=== PATIENT | female | born 1975 | race Caucasian/White ===

== ENCOUNTER → 2021-07-28 14:38 | Outpatient (BNVA) | payer OTHER, SELFPAY | PROVIDERS: Visit Provider Nurse Practitioner | DX: M25.569 Pain in unspecified knee (principal) | CPT/HCPCS: 73562 ==

== ENCOUNTER 2022-01-16 07:21 | Outpatient (CLI) | payer OTHER, SELFPAY ==
--- NOTE | 2022-01-16 08:00 | MR_ITS ---
WS: [id number] MRI LEFT KNEE NONCONTRAST TECHNIQUE: Axial PD, coronal PD fat sat, coronal PD, sagittal PD, and sagittal PD fat-sat images obta ined. CLINICAL INFORMATION: S89.90XA - Unspecified injury of unspecified lower leg, i... COMPARISON: None. FINDINGS: Distal quadriceps and patella tendons are intact. Hypertrophic patella with upper pole osteophyte. Ad vanced chondromalacia patella with subchondral edema in the lateral patella facet. Small suprapatella r effusion. Tendinopathy patella tendon insertion. Prepatellar soft tissue edema. ACL and PCL are intact. Somewhat diminutive and chronic thinning of the ACL. Advanced tricompartmenta l arthritis. Grade 3 chondromalacia involving the medial and lateral joint compartments. No subchondr al edema. Chronic thinning of the medial and lateral meniscus. No acute appearing meniscal tears. Normal medial and lateral patellar retinaculum. Normal popliteal fossa. Small cluster tiny ganglion cysts along th e posterior medial femoral condyle. Medial and lateral collateral ligaments are intact. Small amount of fluid and edema deep to the MCL consistent with grade one injury. MR/MR knee LT wo con* [id number] IMPRESSION: 1. Advanced tricompartmental arthritis. 2. ACL and PCL are intact. Chronic thinning with somewhat diminutive ACL. 3. No acute appearing meniscal tears. Chronic thinning of the medial and later al meniscus. 4. Grade III chondromalacia medial and lateral joint compartments. No subchond ral edema. Chondromalacia advanced for patient this age. 5. Grade IV chondromalacia patella with subchondral edema along the lateral pa tella facet. Hypertrophic patella with upper pole projecting osteophyte measuri ng 11 mm. Chondromalacia advanced patient this age. 6. Small amount of fluid and edema deep to the MCL can be seen with grade one injury. LCL is intact. 7. Hypertrophic changes along the joint line. Outbridge grading: grade IV: full-thickness cartilage loss with underlying bone reactive changes
== END 2022-01-16 07:22 | disposition home or self-care (01) ==
PROVIDERS: PCP Internal Medicine; Visit Provider Orthopaedic Surgery
DX: S89.92XA Unspecified injury of left lower leg, initial encounter (principal); X58.XXXA Exposure to other specified factors, initial encounter; M22.42 Chondromalacia patellae, left knee
CPT/HCPCS: 73721

== ENCOUNTER 2023-01-13 08:44 | Emergency (ER) | payer SELFPAY ==
[2023-01-13] VITALS (7 sets, daily range): BP systolic 131–158; BP diastolic 79–96; PULSE 70–82; RESP 12–24; TEMP 36.7; O2SAT 99–100; BMI 47.2
--- NOTE | 2023-01-13 08:47 | ECG_ITS ---
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 Measurements Intervals [place] Rate: 77 P: 51 IL: 187 QRS: 113 QRSD: 102 T: 49 QT: 364 QTc: 413 Interpretive Statements SINUS RHYTHM POSSIBLE RIGHT VENTRICULAR HYPERTROPHY [SOME/ALL OF: PROMINENT R IN V1, LATE TRANSITION, RAD, SAPPHIRE, SSS] POSSIBLE ANTERIOR MYOCARDIAL INFARCTION , PROBABLY OLD [30 ms Q WAVE IN V3/V4, OR R < 0.2 mV IN V4] No previous ECG available for comparison Electronically Signed On 01-13-2023 11:53:19 CDT by Mateusz Tijerina M.D. [id number]
--- NOTE | 2023-01-13 08:48 | W.ED.GENADLT ---
HPI - General Adult General: Chief complaint: Chest Pain Stated complaint: High BP, High HR, back pain Time Seen by Provider: 01/13/23 08:46 Source: patient Mode of arrival: ambulatory History of Present Illness: 47-year-old female presents emergency room complaining of lightheaded dizziness vertiginous-like syndrome. This began last night at around 10:00. She states she had a migraine for about the last week or more. She is also have elevated blood pressure. She was started on lisinopril approximately 1 week ago. She intermittently has some mild chest discomfort although on exam it is noted that it was slightly reproducible with palpation across left sternal border. She tells me she previously had to what she describes as stress heart attacks had an angiogram done and then the angiogram was read as normal. No recent trauma or falls no neck pain. She is not on any anticoagulants. She is on for Enterra mean. She has a history of diabetes mellitus was previously on metformin but lost a substantial amount of weight and her hemoglobin A1c dropped below 6 and they stopped the metformin. She is able to reproduce her symptoms by movement of her head or sitting up but noted during exam looking at her ears having her turn her head and have her and sitting up so we could listen to her lungs she reproduced her vertiginous-like symptoms. Onset (ago): hour(s) Location: head Severity: moderate Relieving factors: none Exacerbating factors: none Associated symptoms: Reports headache(s); Deny chest pain, confusion, cough, diaphoresis, decreased appetite, dyspnea, fevers/chills, malaise, nausea, rash, palpitations, seizures, short of breath, syncope, vomiting or weakness Review of Systems Const: Denies: fever(s), chills, fatigue, malaise or diaphoresis ENMT: Denies: throat pain, ear or mastoid pain, nasal discharge or nasal congestion Card: Denies: chest pain, palpitations or syncope Resp: Denies: dyspnea GI: Denies: abdominal pain, nausea or vomiting : Denies: flank pain, difficulty voiding, dysuria, urinary frequency or urinary urgency Musc: Denies: neck pain or back pain Skin/Breast: Denies: rash Neuro: Reports: headache(s) and vertigo; Denies: lack of coordination, difficulty walking or confusion [facility] ED PFSH: Medical History (Updated 01/13/23 @ 12:27 by Macho White DO) Diabetes Obesity Social History Smoking and tobacco status: never smoked Physical Exam Const: GENERAL APPEARANCE: cooperative and comfortable ORIENTATION/CONSCIOUSNESS: Yes awake, Yes oriented to person, Yes oriented to place and Yes oriented to time HENMT: COMMON NORMALS: normocephalic, atraumatic and hearing grossly normal bilaterally HEAD & SCALP: normocephalic and atraumatic Resp: COMMON NORMALS: normal respiratory effort, No retractions, No use of accessory muscles and clear to auscultation bilaterally AUSCULTATION: clear to auscultation bilaterally Cardio: COMMON NORMALS: regular rate, regular rhythm and No murmurs present (Cardio) RATE: regular rate RHYTHM: regular rhythm GI: COMMON NORMALS: Soft to palpation and No hepatosplenomegaly present AUSCULTATION: Yes normoactive bowel sounds PALPATION: Yes Soft to palpation, No Tenderness to palpation present (GI), No Guarding due to palpation present (GI) and Yes No hepatosplenomegaly present Extremity: COMMON NORMALS: normal to inspection, capillary refill normal, no clubbing, cyanosis or edema, no calf tenderness and no pedal edema Neuro: SENSORIUM/ORIENTATION: Yes oriented to person, Yes oriented to place and Yes oriented to time Skin: COMMON NORMALS: no rashes or lesions noted GENERAL SKIN EXAM: no rashes or lesions noted Course Vital Signs: Vital signs: Vital Signs Temperature 98.1 F 01/13/23 08:48 Pulse Rate 77 01/13/23 11:00 Respiratory Rate 24 H 01/13/23 11:00 Blood Pressure 131/79 01/13/23 11:00 Pulse Oximetry 100 01/13/23 09:30 Oxygen Delivery Me thod Room Air 01/13/23 08:48 MDM - General Adult Medical Decision Making Patient improved slightly after fluids and medications. Will discharge home she has no focal neurologic deficits NIH score is 0 at the bedside. She can reproduce her symptoms of her vertigo with movement of her head particularly turning her head to the right and sitting up. We will start on Ativan 1 every 6 hours as needed follow-up with her primary care doctor if not improving. Medical Records I reviewed the patient's medical records. Lab Data I reviewed the patient's lab results. 01/13/23 09:15 01/13/23 09:15 Radiology Impressions Chest X-Ray 01/13/23 10:25 IMPRESSION: No acute findings. Laboratory Results WBC 6.2 10^3/uL (4.0-10.0) 01/13/23 09:15 RBC 5.33 10^6/uL (4.1-5.3) H 01/13/23 09:15 Hgb 13.7 g/dL (11.5-15.3) 01/13/23 09:15 Hct 43.1 % (37.0-47.0) 01/13/23 09:15 MCV 80.9 fl (81-99) L 01/13/23 09:15 MCH 25.7 pg (28.0-34.0) L 01/13/23 09:15 MCHC 31.8 g/dL (30.0-36.0) 01/13/23 09:15 RDW 14.1 % (12.1-15.1) 01/13/23 09:15 Plt Count 237 10^3/cmm (130-400) 01/13/23 09:15 MPV 10.1 fL (7.4-10.4) 01/13/23 09:15 Neut % (Auto) 58.3 % 01/13/23 09:15 Lymph % (Auto) 28.6 % 01/13/23 09:15 [place] % (Auto) 8.1 % 01/13/23 09:15 Eos % (Auto) 3.6 % 01/13/23 09:15 Baso % (Auto) 1.1 % 01/13/23 09:15 Neut # (Auto) 3.58 10^3/uL (1.8-7.7) 01/13/23 09:15 Lymph # (Auto) 1.8 10^3/uL (0.8-4.8) 01/13/23 09:15 [place] # (Auto) 0.5 10^3/uL (0.2-0.9) 01/13/23 09:15 Eos # (Auto) 0.2 10^3/uL (0.0-0.8) 01/13/23 09:15 Baso # (Auto) 0.1 10^3/uL (0.0-0.1) 01/13/23 09:15 Nucleated RBC % (auto) 0 % 01/13/23 09:15 Nucleated RBCs # 0.0 /100WBC 01/13/23 09:15 Sodium 141 mmol/L (136-145) 01/13/23 09:15 Potassium 4.1 mmol/L (3.5-5.1) 01/13/23 09:15 Chloride 107 mmol/L (98-107) 01/13/23 09:15 Carbon Dioxide 25 mmol/L (22-29) 01/13/23 09:15 Anion Gap 13.1 (5-19) 01/13/23 09:15 BUN 18 mg/dL (6-20) 01/13/23 09:15 Creatinine 0.6 mg/dL (0.5-0.9) 01/13/23 09:15 GFR Calculation 106.7 mL/min (90-130) 01/13/23 09:15 Glucose 97 mg/dL (65-115) 01/13/23 09:15 Calculated Osmolality 294 mOsm/kg (285-295) 01/13/23 09:15 Calcium 8.9 mg/dL (8.5-10.5) 01/13/23 09:15 Troponin T Baseline 6 ng/L (0-10) 01/13/23 09:15 Troponin T 120 Minute 6.00 ng/L (0-10) 01/13/23 11:27 Delta Troponin T 0 ABS# (0-10) 01/13/23 11:27 Urine Color Yellow (Yellow) 01/13/23 09:50 Urine Appearance Hazy (CLEAR) A 01/13/23 09:50 Urine pH 7 (5-7) 01/13/23 09:50 Ur Specific [place] 1.015 (1.005-1.030) 01/13/23 09:50 Urine Protein Neg (Negative) 01/13/23 09:50 Urine Glucose (UA) Norm (Normal) 01/13/23 09:50 Urine Ketones Negative (Negative) 01/13/23 09:50 Urine Blood Neg (Negative) 01/13/23 09:50 Urine Nitrate Negative (Negative) 01/13/23 09:50 Urine Bilirubin Neg (Negative) 01/13/23 09:50 Urine Urobilinogen Neg mg/dL (Negative) 01/13/23 09:50 Ur Leukocyte Esterase Negative (Negative) 01/13/23 09:50 Urine RBC 0-4 /hpf (0-2) H 01/13/23 09:50 Urine WBC None /hpf (0-5) 01/13/23 09:50 Ur Squamous Epith Cells 5-10 /hpf (0-5) H 01/13/23 09:50 Amorphous Sediment Not Reportable 01/13/23 09:50 Urine Bacteria Trace /hpf (NONE) 01/13/23 09:50 Discharge Plan Discharge Patient Disposition: Home Clinical Impression: Benign paroxysmal positional vertigo Condition: Stable Prescriptions: New Ativan 2 mg tablet 2 mg PO Q6H PRN (Reason: dizziness or vertigo) Qty: 14 0RF No Action topiramate [Topamax] 100 mg tablet 200 mg PO QAM lamotrigine [Lamictal] 100 mg tablet 100 mg PO BID clonidine HCl 0.1 mg tablet 0.1 - 0.2 mg PO BEDTIME ibuprofen 800 mg tablet 800 mg PO TID PRN (Reason: Pain) Aspir-81 81 mg Tablet,Delayed Release (Dr/Ec) 81 mg PO DAILY bupropion HCl 100 mg tablet 200 mg PO BID gabapentin 300 mg capsule 300 mg PO BEDTIME lisinopril 5 mg tablet 5 mg PO QAM alprazolam 2 mg tablet 1 - 2 mg PO Q8H PRN (Reason: Pain) cholecalciferol (vitamin D3) 125 mcg (5,000 unit) capsule 5,000 unit PO QAM Ferretts 325 mg (106 mg iron) tablet 325 mg PO QAM Discharge Orders: Discharge ED (Routine); Ordered 01/13/23 Ordered By: Macho White Referrals: Emmanuel Santamaria MD [Primary Care Provider] - Discharge Diet: Usual diet Discharge Activity: Increase activity as tolerated Patient Instructions: Opioid Safety, Pain Management Activity Restrictions/Additional Instructions: You were seen today for dizziness and vertigo. Your symptoms are recreated by movement of the head and change in body position your cardiac enzymes and EKG were unremarkable. Your exam did not show any signs of acute stroke. Recommend you use the Ativan as needed to relieve the vertigo vertigo symptoms. Avoid driving or using heavy machinery or any activities requiring full coordination intentionally using the Ativan as it can cause drowsiness. If your symptoms persist follow-up with your primary care doctor or return to the emergency room. Stand Alone Forms: Work/School Release Coding Level of Care Code ED Clinical Support Tech for Lillie Mason
[2023-01-13] MEDS: sodium chloride 0.9% 1,000 ML 999 ML IV (09:25)
[2023-01-13] MEDS: LORazepam 2 mg Tablet PO (09:26)
[2023-01-13 09:51] LABS: Basophils # 0.1 10^3/uL (0.0-0.1); Basophils % 1.1 %; Eosinophils # 0.2 10^3/uL (0.0-0.8); Eosinophils % 3.6 %; Hematocrit 43.1 % (37.0-47.0); Hemoglobin 13.7 g/dL (11.5-15.3); Lymphocytes # 1.8 10^3/uL (0.8-4.8); Lymphocytes % 28.6 %; Mean Corpuscular HGB Conc 31.8 g/dL (30.0-36.0); Mean Corpuscular Hemoglobin 25.7 pg (28.0-34.0); Mean Corpuscular Volume 80.9 fl (81-99); Mean Platelet Volume 10.1 fL (7.4-10.4); Monocytes # 0.5 10^3/uL (0.2-0.9); Monocytes % 8.1 %; Neutrophils # 3.58 10^3/uL (1.8-7.7); Neutrophils % 58.3 %; Nucleated Red Blood Cells % 0 %; Platelet Count 237 10^3/cmm (130-400); Red Blood Count 5.33 10^6/uL (4.1-5.3); Red Cell Distribution Width 14.1 % (12.1-15.1); White Blood Count 6.2 10^3/uL (4.0-10.0)
--- NOTE | 2023-01-13 10:08 | PC.PHAR ---
Addendum entered by Alyssa Ruiz 01/13/23 10:12: pt states she is no longer taking phentermine 37.5mg 1/2 tab bid states not taken for a month and a half ext med history shows last filled 11/13/22 30d/s Original Note: pt states she takes care of her own medications-pt states takes clonidine hcl 0.1-0.2mg hs pt states not taken for a week ext med history shows last filled 09/25/22 30d/s-pt states still takes bupropion 100mg takes 200mg bid ext shows last filled 10/31/22 30d/s 300mg qam and 100mg at 14:00-pt states still takes lamictal 100mg bid ext shows last filled 10/31/22 30d/s-notes are made in the pharmacy comments
[2023-01-13 10:11] LABS: Anion Gap 13.1 (5-19); Blood Urea Nitrogen 18 mg/dL (6-20); Calcium 8.9 mg/dL (8.5-10.5); Carbon Dioxide 25 mmol/L (22-29); Chloride 107 mmol/L (98-107); Glomerular Filtration Rate 106.7 mL/min (90-130); Glucose 97 mg/dL (65-115); Osmolality Calculated 294 mOsm/kg (285-295); Potassium 4.1 mmol/L (3.5-5.1); Sodium 141 mmol/L (136-145)
[2023-01-13 10:14] LABS: Troponin(5th) Baseline 6 ng/L (0-10)
--- NOTE | 2023-01-13 10:25 | XRR_ITS ---
PROCEDURE INFORMATION: Exam: XR Chest Exam date and time: 01/13/2023 10:56 AM Age: 47 years old Clinical indication: Pain; Angina pectoris; Additional info: Chest pain TECHNIQUE: Imaging protocol: Radiologic exam of the chest. Views: 1 view. COMPARISON: No relevant prior studies available. FINDINGS: Lungs: Unremarkable. No consolidation. Pleural spaces: Unremarkable. No pleural effusion. No pneumothorax. Heart/Mediastinum: Unremarkable. No cardiomegaly. Bones/joints: Unremarkable. XR/XR chest 1V portable [id number] IMPRESSION: No acute findings.
[2023-01-13 10:26] LABS: Add Urine Microscopic? YES; Bilirubin Urine Neg (Negative); Blood Urine Neg (Negative); Glucose Urine UA Norm (Normal); Ketones Urine Negative (Negative); Leukocyte Esterase Urine Negative (Negative); Nitrate Urine Negative (Negative); Protein Urine Neg (Negative); RBC Urine 0-4 /hpf (0-2); Specific Gravity, Urine 1.015 (1.005-1.030); Urine Appearance Hazy (CLEAR); Urine Color Yellow (Yellow); Urobilinogen Urine Neg (Negative); pH Urine 7 (5-7)
[2023-01-13 10:27] LABS: Add Urine Culture? No; Bacteria Urine TRACE /hpf
--- NOTE | 2023-01-13 11:17 | ECG_ITS ---
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 Measurements Intervals [place] Rate: 65 P: 56 SC: 187 QRS: 109 QRSD: 110 T: 49 QT: 403 QTc: 420 Interpretive Statements SINUS RHYTHM WITH SINUS ARRHYTHMIA RIGHT AXIS DEVIATION [QRS AXIS > 100] LOW QRS VOLTAGE IN PRECORDIAL LEADS [QRS DEFLECTION < 1.0 mV IN CHEST LEADS] POSSIBLE ANTERIOR MYOCARDIAL INFARCTION , PROBABLY OLD [30 ms Q WAVE IN V3/V4, OR R < 0.2 mV IN V4] Compared to ECG 01/13/2023 08:54:46 Right-axis deviation now present Low QRS voltage now present Myocardial infarct finding still present Electronically Signed On 01-13-2023 11:54:22 CDT by Mateusz Tijerina M.D. [id number]
[2023-01-13 12:10] LABS: Troponin 5 2HR Delta 0 ABS# (0-10)
== END 2023-01-13 12:36 | disposition home or self-care (01) ==
PROVIDERS: Emergency Provider Family Medicine; PCP Internal Medicine
DX: H81.10 Benign paroxysmal vertigo, unspecified ear (principal); Z79.82 Long term (current) use of aspirin; E11.9 Type 2 diabetes mellitus without complications
CPT/HCPCS: 36415; 71045; 80048; 81001; 84484; 85025; 93005; 99285; J7030

== ENCOUNTER → 2023-04-14 14:19 | Outpatient (BNVA) | payer OTHER, SELFPAY | PROVIDERS: PCP Internal Medicine; Visit Provider Registered Nurse Neonatal Intensive Care | DX: R05.9 Cough, unspecified (principal) | CPT/HCPCS: 87426 ==

== ENCOUNTER 2023-07-05 15:25 | Emergency (ER) | payer OTHER, SELFPAY ==
[2023-07-05 15:26] VITALS: BP 193/89; PULSE 81; RESP 17; TEMP 36.6; O2SAT 94; BMI 47.2
--- NOTE | 2023-07-05 15:45 | XRR_ITS ---
PROCEDURE INFORMATION: Exam: XR Left Hand Exam date and time: 07/05/2023 4:01 PM Age: 48 years old Clinical indication: Injury or trauma; Index finger; Patient HX: Lt hand pain; Laceration to distal 2nd digit of left hand; Man vs saw TECHNIQUE: Imaging protocol: Radiologic exam of the left hand. Views: 3 or more views. COMPARISON: No relevant prior studies available. FINDINGS: Bones/joints: There are primary osteoarthritic changes across the 1st carpal metacarpal joint including joint space narrowing, subchondral cystic changes, and marginal osteophyte formations. Soft tissues: There soft tissue injury of the distal aspect of the 2nd digit. Underlying osseous structures are intact without evidence of fracture. There are benign-appearing soft tissue calcifications. XR/XR hand LT min 3V* [id number] IMPRESSION: 1. There soft tissue injury of the distal aspect of the 2nd digit. Underlying osseous structures are intact without evidence of fracture. 2. There are primary osteoarthritic changes across the 1st carpal metacarpal joint as described above.
[2023-07-05 15:52] VITALS: RESP 18; O2SAT 95
--- NOTE | 2023-07-05 15:53 | W.ED.WOUNDLC ---
HPI - Wound/Laceration General: Chief Complaint: Wound/Laceration Stated Complaint: left hand finger laceration Time Seen by Provider: 07/05/23 15:45 History of Present Illness: 48-year-old female comes in today with injury to the left index finger. Patient was using a circular saw and when she went to set it down after use the blade continued to spin and she accidentally got her finger against the blade. Patient has a irregular laceration to the distal part of the finger. Patient has good range of motion of the finger. Patient reports tetanus is up-to-date. Patient is diabetic and has a history of alpha gal. Associated symptoms: Denies fever(s), nausea or vomiting Review of Systems General: Reports: 10 or more systems reviewed and unremarkable except in HPI and below Const: Denies: fever(s) Resp: Denies: dyspnea GI: Denies: nausea or vomiting Musc: Reports: extremity pain Skin/Breast: Reports: new lesions [facility] ED PFSH: Medical History (Updated 07/05/23 @ 16:46 by GLENDA Betancourt) Diabetes Obesity Social History Smoking and tobacco/nicotine status: never used tobacco/nicotine Physical Exam Const: COMMON NORMALS: alert HENMT: COMMON NORMALS: atraumatic HEAD & SCALP: atraumatic Neck/C-Spine: COMMON NORMALS: full ROM Resp: COMMON NORMALS: normal respiratory effort Cardio: COMMON NORMALS: regular rate RATE: regular rate Back/Pelvis: COMMON NORMALS: thoracic and lumbar spine normal to inspection Extremity: LEFT UPPER EXTREMITY: Yes hand & digits (Irregular laceration left distal index finger) Left hand and digits: Yes inspection, Yes palpation, Yes ROM and Yes neurovascular exam Neuro: SENSORIUM/ORIENTATION: Yes alert Skin: TRAUMA: laceration (Left distal index finger 4 cm) irregular Procedures Laceration Laceration 1: Site: hand Side (If applicable): left Size (cm): 4 Description: irregular Depth: simple, single layer Local Anesthetic: lidocaine 2% and with epi Amount of anesthesia used (mL): 4 Pre-repair: wound explored and irrigated extensively Skin layer closed with: nylon Size (cm): 3-0 Number of sutures: 12 Technique: simple, interrupted Course Vital Signs: Vital signs: Vital Signs Temperature 97.8 F 07/05/23 15:26 Pulse Rate 81 07/05/23 15:26 Respiratory Rate 18 07/05/23 15:52 Blood Pressure 193/89 07/05/23 15:26 Pulse Oximetry 95 07/05/23 15:52 Oxygen Delivery Me thod Room Air 07/05/23 15:52 MDM - Wound/Laceration Medical Decision Making 48-year-old female comes in today with injury to the left distal index finger. On exam patient has an irregular laceration to the distal part of the finger. No obvious tendon injury is noted. Patient has good range of motion. Some mild nail damage is noted on the radial aspect of the index finger not involving the cuticle. No foreign body was noted. Differential diagnosis includes not limited to laceration, fracture, tendon injury, foreign body. X-ray noted no bony injury. Patient will be started on Augmentin for prophylaxis therapy. Wound was approximated with sutures. Patient was placed in a dressing with splint for protection. Patient reports understanding of care plan and need for follow-up in 3 to 5 days to recheck wound for further evaluation and treatment. Lab Data Radiology Impressions Hand X-Ray 07/05/23 15:45 IMPRESSION: 1. There soft tissue injury of the distal aspect of the 2nd digit. Underlying osseous structures are intact without evidence of fracture. 2. There are primary osteoarthritic changes across the 1st carpal metacarpal joint as described above. All radiology interpretation(s) finalized by discharge Discharge Plan Discharge Patient Disposition: Home Clinical Impression: Laceration of finger of left hand Qualifiers: Encounter type: initial encounter Finger: index finger Damage to nail status: with damage Foreign body presence: without foreign body Qualified Code(s): S61.311A - Laceration without foreign body of left index finger with damage to nail, initial encounter Condition: Stable Prescriptions: New hydrocodone-acetaminophen 5-325 mg tablet 1 tab PO Q6H PRN (Reason: pain (scale score 7-10)) Qty: 7 0RF amoxicillin-pot clavulanate 875-125 mg tablet 1 tab PO BID Qty: 14 0RF No Action topiramate [Topamax] 100 mg tablet 200 mg PO QAM lamotrigine [Lamictal] 100 mg tablet 100 mg PO BID azithromycin 250 mg tablet See Rx Instructions PO .COMPLEX Qty: 6 0RF Rx Instructions: take 500 mg today (day 1), then 250 mg for 4 days (days 2-5) PO clonidine HCl 0.1 mg tablet 0.1 - 0.2 mg PO BEDTIME ibuprofen 800 mg tablet 800 mg PO TID PRN (Reason: Pain) Aspir-81 81 mg Tablet,Delayed Release (Dr/Ec) 81 mg PO DAILY bupropion HCl 100 mg tablet 200 mg PO BID gabapentin 300 mg capsule 300 mg PO BEDTIME lisinopril 5 mg tablet 5 mg PO QAM alprazolam 2 mg tablet 1 - 2 mg PO Q8H PRN (Reason: Pain) cholecalciferol (vitamin D3) 125 mcg (5,000 unit) capsule 5,000 unit PO QAM Ferretts 325 mg (106 mg iron) tablet 325 mg PO QAM Ativan 2 mg tablet 2 mg PO Q6H PRN (Reason: dizziness or vertigo) Qty: 14 0RF Discharge Orders: Discharge ED (Routine); Ordered 07/05/23 Ordered By: Kaushik Chavis Referrals: Emmanuel Santamaria MD [Primary Care Provider] - Discharge Diet: Usual diet Discharge Activity: Increase activity as tolerated Patient Instructions: Finger Laceration (ED) Activity Restrictions/Additional Instructions: Keep wound clean and dry. Is very important keep the wound as dry as possible for the next 48 hours. After that you can wash the wound gently with mild soap and water and apply a [id number] antibiotic ointment like bacitracin. Follow-up with primary care in 3 to 5 days for recheck. Take antibiotics as directed. Use acetaminophen and ibuprofen to control pain. Use hydrocodone for severe pain. Return to ER for high fever greater than 100.4, increasing redness and swelling of the hand, or new concerns. Coding Level of Care Code ED Veterinary Technology Instructor for Lillie Mason
[2023-07-05] MEDS: amoxicillin-clav 875-125 mg Tablet 1 TAB PO (15:59)
[2023-07-05] MEDS: HYDROcodone-acetaminophen 10-325 mg Tablet 1 TAB PO (16:06)
[2023-07-05] MEDS: bacitracin ointment Pkt 1 EACH TOPICAL (16:43)
[2023-07-05 18:04] VITALS: BP 125/76; PULSE 80; RESP 18; TEMP 36.6; O2SAT 95
== END 2023-07-05 18:06 | disposition home or self-care (01) ==
PROVIDERS: Emergency Provider Nurse Practitioner Family; PCP Internal Medicine
DX: S61.311A Laceration without foreign body of left index finger with damage to nail, initial encounter (principal); Z79.82 Long term (current) use of aspirin; E11.9 Type 2 diabetes mellitus without complications; W27.0XXA Contact with workbench tool, initial encounter
CPT/HCPCS: 12002; 73130; 99283; 99291

== ENCOUNTER → 2024-03-04 14:33 | Outpatient (BNVA) | payer OTHER, SELFPAY | PROVIDERS: PCP Family Medicine; Visit Provider Nurse Practitioner Family | DX: J02.9 Acute pharyngitis, unspecified (principal) | CPT/HCPCS: 87400; 87426; 87880 ==

== ENCOUNTER 2024-04-05 14:43 | Outpatient (CLI) | payer OTHER, SELFPAY ==
--- NOTE | 2024-04-05 14:49 | XRR_ITS ---
PROCEDURE INFORMATION: Exam: XR Chest Exam date and time: 04/05/2024 3:26 PM Age: 48 years old Clinical indication: Shortness of breath; Additional info: J20.9 - acute bronchitis, unspecified TECHNIQUE: Imaging protocol: Radiologic exam of the chest. Views: 2 views. COMPARISON: CR XR chest 1V portable [id number] 01/13/2023 10:56 AM FINDINGS: Lungs: No focal consolidation. Pleural spaces: No evidence of pneumothorax. No evidence of pleural effusion. Heart/Mediastinum: Cardiomediastinal silhouette is within normal limits. Bones/joints: No evidence of acute osseous abnormality. XR/XR chest 2V* [id number] IMPRESSION: 1. No acute cardiopulmonary abnormality.
== END 2024-04-05 14:44 | disposition home or self-care (01) ==
LOC: RAD 14:45
PROVIDERS: PCP Family Medicine; Visit Provider Nurse Practitioner Family
DX: J20.9 Acute bronchitis, unspecified (principal)
CPT/HCPCS: 71046

== ENCOUNTER 2024-05-20 13:31 | Outpatient (CLI) | payer OTHER, SELFPAY | END 2024-05-20 13:32 | disposition home or self-care (01) | LOC: RAD 13:31 | PROVIDERS: PCP Family Medicine; Visit Provider Psychiatry & Neurology Neurology | DX: Z53.9 Procedure and treatment not carried out, unspecified reason (principal) | CPT/HCPCS: 99213 ==

== ENCOUNTER 2024-06-20 12:30 | Oncology outpatient (recurring) (ONCR) | payer OTHER, SELFPAY ==
--- NOTE | 2024-06-20 14:06 | MR_ITS ---
WS: [id number] MRA CAROTID WITHOUT AND WITH GADOLINIUM ENHANCEMENT TECHNIQUE: Axial 2-D TOF and gadolinium bolus images obtained with axial images and axial, sagittal, and coronal 2-D reformatted images. CLINICAL INFORMATION: F90.9 - Attention-deficit hyperactivity disorder, unspeci... COMPARISON: None. FINDINGS: RIGHT: RIGHT common carotid artery is patent. No significant RIGHT ICA stenosis. RIGHT ICA is patent to the skull base. LEFT: LEFT common carotid artery is patent. No significant LEFT ICA stenosis. LEFT ICA is patent to the sku ll base. Codominant and patent vertebral arteries bilaterally. Proximal basilar artery is patent. Proximal sub clavian arteries are patent. Normal branching aortic arch anatomy. MR/MR angio neck w con* [id number] IMPRESSION: 1. No significant ICA stenosis bilaterally. 2. Codominant and patent vertebral arteries bilaterally. 3. Proximal subclavian arteries are patent.
[2024-06-20] MEDS: gadobenate dimeglumine 20 mL vial IV (17:14)
== END 2024-07-07 23:59 | disposition home or self-care (01) ==
PROVIDERS: PCP Family Medicine; Visit Provider Internal Medicine Hematology & Oncology
DX: F90.9 Attention-deficit hyperactivity disorder, unspecified type (principal); E66.9 Obesity, unspecified; G43.909 Migraine, unspecified, not intractable, without status migrainosus; I70.203 Unspecified atherosclerosis of native arteries of extremities, bilateral legs; Q25.48 Anomalous origin of subclavian artery
CPT/HCPCS: 70548

== ENCOUNTER 2024-12-04 11:22 | Emergency (ER) | payer OTHER, SELFPAY ==
[2024-12-04 11:25] VITALS: BP 152/97; PULSE 69; TEMP 36.7; O2SAT 97; BMI 51.7
--- NOTE | 2024-12-04 11:30 | ECG_ITS ---
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1975 Requested By: Kaushik Kasper Order Number: [id number] Reading MD: Measurements Intervals [place] Rate: 68 P: 33 VT: 196 QRS: 23 QRSD: 86 T: 3 QT: 356 QTc: 381 Interpretive Statements SINUS RHYTHM INDETERMINATE AXIS LOW QRS VOLTAGE IN PRECORDIAL LEADS [QRS DEFLECTION < 1.0 mV IN CHEST LEADS] ANTERIOR MYOCARDIAL INFARCTION , PROBABLY OLD [40+ ms Q WAVE AND/OR ST/T ABNORMALITY IN V3/V4] PROBABLE INFERIOR MYOCARDIAL INFARCTION , PROBABLY OLD [35 ms Q WAVE IN II/aVF] INTERPRETATION BASED ON A DEFAULT AGE OF 40 YEARS No previous ECG available for comparison [id number]
[2024-12-04 13:33] VITALS: PULSE 75; RESP 16; O2SAT 98
[2024-12-04] MEDS: orphenadrine 30 mg/mL Inj 2 mL 60 MG IM (13:38)
[2024-12-04] MEDS: ketorolac 30 mg/mL INJ IM (13:38)
--- NOTE | 2024-12-04 13:38 | W.ED.EXTPRO ---
HPI - Extremity Problem General: Chief complaint: Extremity Problem,Nontraumatic Stated complaint: left shoulder pain, sob Time Seen by Provider: 12/04/24 13:19 History of Present Illness: 49-year-old female comes in today with left shoulder posterior pain. Patient denies any falls or injuries. Patient does constantly lift and move things at work. Patient appears nontoxic. Patient does have a history of mental health disorder and cardiac disease. Related Data Home Medications ?Medication ?Instructions ?Recorded ?Confirmed alprazolam 2 mg tablet (Xanax) 2 mg PO .PRN 02/29/24 04/01/24 desvenlafaxine succinate 50 mg 50 mg PO DAILY 02/29/24 04/01/24 tablet,extended release 24 hr (Pristiq) lamotrigine 100 mg tablet 100 mg PO BID 02/29/24 04/01/24 (Lamictal) acetaminophen 300 mg-codeine 60 mg tab PO 03/23/24 04/01/24 tablet semaglutide 1 mg/dose (4 mg/3 mL) mg SUBCUT 03/23/24 04/01/24 subcutaneous pen injector (Ozempic) Previous Rx's ?Medication ?Instructions ?Recorded methylphenidate HCl 20 mg tablet 20 mg PO DAILY 30 days #30 tabs 02/29/24 (Ritalin) methylphenidate HCl 27 mg 27 mg PO DAILY 30 days #30 tabs 03/08/24 tablet,extended release 24 hr (Concerta) cholecalciferol (vitamin D3) 1,250 50,000 unit PO Q7D 4 weeks #4 tabs 03/25/24 mcg (50,000 unit) tablet levofloxacin 750 mg tablet 750 mg PO DAILY 7 days #7 tabs 03/28/24 azithromycin 250 mg tablet See Rx Instructions PO .COMPLEX #6 04/01/24 tabs diclofenac sodium 75 mg 75 mg PO BID #20 tabs 12/04/24 tablet,delayed release hydrocodone 5 mg-acetaminophen 325 1 tab PO Q8H PRN pain #6 tabs 12/04/24 mg tablet tizanidine 4 mg tablet 4 mg PO Q12H #14 tabs 12/04/24 Allergies Allergy/AdvReac Type Severity Reaction Status Date / Time Alpha-Gal Allergy Unknown Verified 12/04/24 11:35 ([id number]-Ghavs-1,3-Gala Beef Containing Products Allergy ALGY-Anaphy Verified 12/04/24 11:35 laxis cephalexin (From Keflex) Allergy ALGY-Hives Verified 12/04/24 11:35 gelatin Allergy ALGY-Anaphy Verified 12/04/24 11:35 laxis Pork/Porcine Containing Allergy ALGY-Anaphy Verified 12/04/24 11:35 Products laxis Review of Systems General: Reports: 10 or more systems reviewed and unremarkable except in HPI and below PFSH ED PFSH: Medical History Obesity Diabetes Social History Smoking and tobacco/nicotine status: never used tobacco/nicotine Physical Exam Const: COMMON NORMALS: alert HENMT: COMMON NORMALS: normocephalic HEAD & SCALP: normocephalic Neck/C-Spine: COMMON NORMALS: full ROM Chest: COMMONS NORMALS: normal palpation of entire chest wall Resp: COMMON NORMALS: normal respiratory effort and clear to auscultation bilaterally AUSCULTATION: clear to auscultation bilaterally Cardio: COMMON NORMALS: regular rate and regular rhythm RATE: regular rate RHYTHM: regular rhythm GI: COMMON NORMALS: non-tender Back/Pelvis: THORACIC SPINE/UPPER BACK: Yes paraspinal muscle tenderness Thoracic paraspinal muscle tenderness: left Extremity: COMMON NORMALS: full ROM Neuro: SENSORIUM/ORIENTATION: Yes alert Skin: COMMON NORMALS: turgor normal GENERAL SKIN EXAM: turgor normal Course Vital Signs: Vital signs: Vital Signs Temperature 98.0 F 12/04/24 11:25 Pulse Rate 75 12/04/24 13:33 Respiratory Rate 16 12/04/24 13:33 Blood Pressure 152/97 12/04/24 11:25 Pulse Oximetry 98 12/04/24 13:33 Oxygen Delivery Me thod Room Air 12/04/24 13:33 MDM - Extremity (Nontraumatic) Medical Decision Making 49-year-old female comes in today for complaints of left posterior shoulder pain. On exam patient has muscle tenderness and tightness to the left intrascapular area and thoracic paraspinous muscles. Patient has some aggravation of pain with abduction of the shoulder. Distal pulses and sensation are intact. Differential diagnosis includes intervertebral disc disease, facet arthritis, infrascapular pain, muscle strain, arthritis. Reviewed exam with patient with recommendation for treatment and follow-up. Patient reported understanding agreed to plan. Patient be treated for musculoskeletal pain. She has reproducible pain with palpation and movement. No signs of cardiac illnesses noted at this time. Patient reported understanding of care plan and need for follow-up or return to the ER. No radiology studies performed this visit Discharge Plan Discharge Patient Disposition: Home Clinical Impression: Scapular dysfunction Condition: Stable Prescriptions: New diclofenac sodium 75 mg tablet,delayed release (DR/EC) 75 mg PO BID Qty: 20 0RF tizanidine 4 mg tablet 4 mg PO Q12H Qty: 14 0RF hydrocodone-acetaminophen 5-325 mg tablet 1 tab PO Q8H PRN (Reason: pain) Qty: 6 0RF Rx Instructions: DX: intrascapular pain No Action levofloxacin 750 mg tablet 750 mg PO DAILY 7 Days Qty: 7 0RF lamotrigine [Lamictal] 100 mg tablet 100 mg PO BID desvenlafaxine succinate [Pristiq] 50 mg tablet extended release 24 hr 50 mg PO DAILY alprazolam [Xanax] 2 mg tablet 2 mg PO .PRN methylphenidate HCl [Ritalin] 20 mg tablet 20 mg PO DAILY 30 Days Qty: 30 0RF Rx Instructions: Take at 2pm acetaminophen-codeine 300-60 mg tablet PO Ozempic 1 mg/dose (4 mg/3 mL) pen injector SUBCUT azithromycin 250 mg tablet See Rx Instructions PO .COMPLEX Qty: 6 0RF Rx Instructions: For 250 mg dose pack: take 500 mg today (day 1), then 250 mg for 4 days (days 2-5) PO methylphenidate HCl [Concerta] 27 mg tablet extended release 24hr 27 mg PO DAILY 30 Days Qty: 30 0RF Rx Instructions: in am cholecalciferol (vitamin D3) 1,250 mcg (50,000 unit) tablet 50,000 unit PO Q7D 28 Days Qty: 4 5RF Rx Instructions: take one tablet a week Discharge Orders: Discharge ED (Routine); Ordered 12/04/24 Ordered By: Kaushik Chavis Referrals: Sofia Rand MD [Primary Care Provider] - Patient Instructions: Shoulder Pain (ED) Activity Restrictions/Additional Instructions: Maintain activity as tolerated. Use ice and heat for assistance with control of pain. Drink plenty of water. Use muscle rub for further pain relief. Take diclofenac twice a day for pain and inflammation. Use tizanidine for muscle relaxation. Take hydrocodone for severe pain. Follow-up with primary care in 3 to 5 days for recheck. Return to ED for new concerns. Print Language: Vietnamese Coding Level of Care Code ED Clay Molder for Lillie Mason
[2024-12-04 13:51] VITALS: BP 153/100; PULSE 67; RESP 16; O2SAT 98
== END 2024-12-04 13:49 | disposition home or self-care (01) ==
PROVIDERS: Emergency Provider Nurse Practitioner Family; PCP Family Medicine
DX: M89.8X1 Other specified disorders of bone, shoulder (principal); E11.9 Type 2 diabetes mellitus without complications
CPT/HCPCS: 93005; 96372; 99284; J1885; J2360